=== PATIENT | female | born 1985 | race Two or more races ===

== ENCOUNTER 2019-05-23 20:21 | Emergency (ER) | payer BC, MEDICAID ==
[~2019-05-23] VITALS: Ht 157.5 cm; Wt 75.7 kg
[2019-05-23 20:21] VITALS: BP 107/67
== END 2019-05-23 22:14 | disposition home or self-care (01) ==
LOC: ER 20:21
DX: O98.512 Other viral diseases complicating pregnancy, second trimester (principal); J11.1 Influenza due to unidentified influenza virus with other respiratory manifestations; Z60.2 Problems related to living alone; Z3A.24 24 weeks gestation of pregnancy

== ENCOUNTER 2019-06-02 00:11 | Emergency (ER) | payer BC ==
[~2019-06-02] VITALS: Ht 157.5 cm; Wt 75.7 kg
[2019-06-02 01:06] VITALS: BP 105/72
--- NOTE | 2019-06-02 01:32 | NUR ---
Patient discharged to home in stable condition. Written and verbal after care instructions given. Patient verbalizes understanding of instruction.
== END 2019-06-02 01:32 | disposition home or self-care (01) ==
LOC: ER 00:14
DX: J06.9 Acute upper respiratory infection, unspecified (principal); Z60.2 Problems related to living alone

== ENCOUNTER 2021-06-14 21:55 | Emergency (ER) | payer BC ==
[~2021-06-14] VITALS: Ht 157.5 cm; Wt 77.1 kg
--- NOTE | 2021-06-14 22:55 | NUR ---
PT BIBSELF FROM HOME C/O COUGH X4 DAYS. HAVING COLD LIKE CONGESTION SX: CONGESTION, H/A X2 WEEKS. PT A/OX4. TOLERATING R/A WELL AT 99%. CONNECTED PT TO POX AND MONITOR.
--- NOTE | 2021-06-14 23:23 | NUR ---
COVID ANTIGEN SWAB AND URINE SAMPLE COLLECTED AND SENT TO LAB
--- NOTE | 2021-06-14 23:42 | NUR ---
GENERAL ENGINEER AT PT'S BEDSIDE
[2021-06-15] MEDS ORDERED: AZIT250T13 PO (00:23)
[2021-06-15] MEDS ORDERED: predniSONE 20 MG TABLET PO ONE (00:30)
[2021-06-15] MEDS ORDERED: IPRATROPIUM NEB FS 0.5 MG/2.5 ML AMPUL.NEB NEB ONE (00:30)
[2021-06-15] MEDS ORDERED: AZITHROMYCIN 250 MG TABLET PO ONE (00:30)
[2021-06-15] MEDS ORDERED: ALBUTEROL FS 2.5 MG/3 ML VIAL.NEB NEB ONE (00:30)
[2021-06-15] MEDS ORDERED: predniSONE 20 MG TABLET ONE (00:41)
[2021-06-15] MEDS ORDERED: AZITHROMYCIN 500 MG VIAL ONE (00:41)
[2021-06-15] MEDS ORDERED: AZITHROMYCIN 250 MG TABLET ONE (00:42)
[2021-06-15] MEDS ORDERED: IPRATROPIUM NEB FS 0.5 MG/2.5 ML AMPUL.NEB ONE (00:42)
[2021-06-15] MEDS ORDERED: ALBUTEROL FS 2.5 MG/3 ML VIAL.NEB ONE (00:42)
--- NOTE | 2021-06-15 00:45 | NUR ---
RT AT PT'S BEDSIDE
--- NOTE | 2021-06-15 00:45 | NUR ---
RT AT PT'S BEDSIDE FOR BREATHING TX
--- NOTE | 2021-06-15 01:25 | NUR ---
Patient discharged to home in stable condition. RX Written and verbal after care instructions given. Patient verbalizes understanding of instruction. PT ambulatory with a steady gait
[2021-06-15 04:29] VITALS: BP 123/68
== END 2021-06-15 01:25 | disposition home or self-care (01) ==
LOC: ER 21:55
DX: J18.9 Pneumonia, unspecified organism (principal); Z20.822 Contact with and (suspected) exposure to COVID-19; Z90.49 Acquired absence of other specified parts of digestive tract
CPT/HCPCS: 71045; 84703; 87426; 94640; 99284; C9803; J7512; J0456; J7030

== ENCOUNTER 2022-01-11 18:22 | Emergency (ER) | payer BC ==
[~2022-01-11] VITALS: Ht 157.5 cm; Wt 77.1 kg
[~2022-01-11 18:22] MED LIST: AZIT250T13 PO
[2022-01-11] MEDS ORDERED: IBUP-1955 PO (22:16)
--- NOTE | 2022-01-11 22:16 | NUR ---
Patient discharged to home in stable condition. Written and verbal after care instructions given. Patient verbalizes understanding of instruction.
[2022-01-11 22:17] VITALS: BP 72/18
== END 2022-01-11 22:26 | disposition home or self-care (01) ==
LOC: ER 18:34
DX: S92.531A Displaced fracture of distal phalanx of right lesser toe(s), initial encounter for closed fracture (principal); Z90.49 Acquired absence of other specified parts of digestive tract; Z60.2 Problems related to living alone; Z79.899 Other long term (current) drug therapy; W20.8XXA Other cause of strike by thrown, projected or falling object, initial encounter; Y93.89 Activity, other specified; Y92.89 Other specified places as the place of occurrence of the external cause; Y99.8 Other external cause status
CPT/HCPCS: 73630-TC

== ENCOUNTER 2022-03-10 20:22 | Emergency (ER) | payer BC, OTHER ==
[~2022-03-10] VITALS: Ht 157.5 cm; Wt 81.2 kg
[~2022-03-10 20:22] MED LIST changes: +IBUP-1955 PO
--- NOTE | 2022-03-10 20:36 | NUR ---
CALLED FOR [facility] NO ANSWER
--- NOTE | 2022-03-10 20:41 | NUR ---
CALLED TO [facility] ONCE AGAIN. STILL NO ANSWER. NOT IN WAITING ROOM
[2022-03-10] MEDS ORDERED: MECLIZINE HCL 25 MG TABLET ONE (21:22)
[2022-03-10] MEDS ORDERED: NAPROXEN 250 MG TABLET ONE (21:22)
[2022-03-10] MEDS ORDERED: MECLIZINE HCL 25 MG TABLET PO ONE (21:30)
[2022-03-10] MEDS ORDERED: NAPROXEN 250 MG TABLET PO ONE (21:30)
[2022-03-10] MEDS ORDERED: NAPR-1009 PO (21:33)
[2022-03-10] MEDS ORDERED: MECL-159 PO (21:33)
--- NOTE | 2022-03-10 21:40 | NUR ---
Patient discharged to home in stable condition. Written and verbal after care instructions given. Patient verbalizes understanding of instruction. Pt ambulatory with a steady gait
[2022-03-10 21:42] VITALS: BP 122/87
== END 2022-03-10 21:43 | disposition home or self-care (01) ==
LOC: ER 20:23
DX: H81.11 Benign paroxysmal vertigo, right ear (principal); S16.1XXA Strain of muscle, fascia and tendon at neck level, initial encounter; Z90.49 Acquired absence of other specified parts of digestive tract; Z79.899 Other long term (current) drug therapy; V49.9XXA Car occupant (driver) (passenger) injured in unspecified traffic accident, initial encounter; Y93.89 Activity, other specified; Y92.89 Other specified places as the place of occurrence of the external cause; Y99.8 Other external cause status
CPT/HCPCS: 99283; J8597

== ENCOUNTER 2022-07-23 11:31 | Emergency (ER) | payer MEDICAID ==
[~2022-07-23] VITALS: Ht 157.5 cm; Wt 77.1 kg
[~2022-07-23 11:31] MED LIST changes: +MECL-159 PO; +NAPR-1009 PO
--- NOTE | 2022-07-23 12:00 | NUR ---
RECEIVED PT 36 YRS FEMALE WALKING IN C/O ABDOMINAL PAIN AND DIAHEAHEA FOR 5 DAYS HAD LOSS STOOL MORE THEN 5 TIME TODAY
--- NOTE | 2022-07-23 12:15 | NUR ---
SEEN BY DR. STERLING
--- NOTE | 2022-07-23 12:25 | NUR ---
BLOOD DROW BY LAB TACH
[2022-07-23] MEDS ORDERED: IV NS 0.9% 1,000 ML BAG IV ONE (12:30)
[2022-07-23 12:52] LABS: COLOR,URINE RED (YELLOW)
[2022-07-23 12:53] LABS: BILIRUBIN,URINE MODERATE (NEGATIVE); PROTEIN,URINE >300 mg/dl (NEGATIVE); UGLUCOSE NEGATIVE (NEGATIVE)
[2022-07-23 12:54] LABS: LEUKOCYTE ESTERASE ,URINE TRACE (NEGATIVE); NITRITE, URINE NEGATIVE (NEGATIVE)
--- NOTE | 2022-07-23 12:55 | NUR ---
INERTED ANGOCATHETER G 20 ON LT WRIST IVF INFUSED AND PATENT
[2022-07-23 13:08] LABS: BASOPHILS % (AUTO) 0.6 % (0.0-2.0); EOSINOPHILS % (AUTO) 0.5 % (0.0-6.0); HEMATOCRIT 43 % (33-45); HEMOGLOBIN 14.2 g/dL (11.5-14.8); LYMPHOCYTES # (AUTO) 1.3 K/uL (0.8-4.8); LYMPHOCYTES % (AUTO) 30.5 % (20.0-44.0); MEAN CORPUSCULAR HGB CONC 33 g/dl (31.0-36.0); MEAN CORPUSCULAR VOLUME 85 fL (82-100); MONOCYTES # (AUTO) 0.4 K/uL (0.1-1.30); MONOCYTES % (AUTO) 9.8 % (2.0-12.0); NEUTROPHILS # (AUTO) 2.5 K/uL (1.8-8.9); NEUTROPHILS % (AUTO) 58.6 % (43.0-81.0); PLATELET COUNT (AUTO) 218 K/uL (150-450); RED BLOOD CELL COUNT(AUTO) 4.98 MIL/uL (4.0-5.2); WHITE BLOOD COUNT (AUTO) 4.2 K/uL (4.3-11.0)
[2022-07-23 13:17] LABS: CALCIUM, SERUM 8.8 mg/dL (8.5-10.1); CREATININE 0.8 mg/dL (0.6-1.3); POTASSIUM 3.3 mmol/L (3.5-5.1)
[2022-07-23 13:33] LABS: ALBUMIN 3.8 g/dL (3.4-5.0); BILIRUBIN,DIRECT 0.1 mg/dL (0.0-0.2); BILIRUBIN,TOTAL 0.4 mg/dL (0.2-1.0); TOTAL PROTEIN, SERUM 7.6 g/dL (6.4-8.2)
[2022-07-23] MEDS ORDERED: LOPE-195 PO (13:54)
[2022-07-23] MEDS ORDERED: ONDA4TAB5 PO (13:54)
[2022-07-23] MEDS ORDERED: SULF1TAB48 PO (13:54)
--- NOTE | 2022-07-23 15:45 | NUR ---
TO CT SCAN OF ABDOMIN
[2022-07-23 15:47] LABS: RBC,URINE TOO NUMEROUS TO COUN /HPF (0-2)
[2022-07-23 15:51] LABS: SQUAMOUS EPITHELIAL CELL,UR Few /HPF (None Seen)
[2022-07-23 15:52] LABS: BACTERIA,URINE Moderate /HPF (None Seen)
[2022-07-23 18:26] VITALS: BP 110/70
== END 2022-07-23 18:26 | disposition home or self-care (01) ==
LOC: ER 11:38
DX: K52.9 Noninfective gastroenteritis and colitis, unspecified (principal); Z90.49 Acquired absence of other specified parts of digestive tract; Z79.899 Other long term (current) drug therapy
CPT/HCPCS: 99285; 74176; 96360; 85025; 80048; 83690; 80076; 84703; 81001; 36415; J7030

== ENCOUNTER 2023-07-18 04:45 | Emergency (ER) | payer MEDICAID ==
[~2023-07-18] VITALS: Ht 157.5 cm; Wt 79.4 kg
[~2023-07-18 04:45] MED LIST changes: +LOPE-195 PO; +ONDA4TAB5 PO; +SULF1TAB48 PO
[2023-07-18 05:03] VITALS: BP 124/77; TEMP 98.8
[2023-07-18] MEDS ORDERED: AMOX500C2 PO (05:16)
[2023-07-18 05:18] VITALS: O2SAT 96
[2023-07-18] MEDS: AMOXICILLIN TRIHYDRATE 500 MG CAPSULE PO ONE (05:33)
== END 2023-07-18 05:35 | disposition home or self-care (01) ==
LOC: ER 04:49
DX: J03.90 Acute tonsillitis, unspecified (principal); Z90.49 Acquired absence of other specified parts of digestive tract; Z60.2 Problems related to living alone; Z79.899 Other long term (current) drug therapy
CPT/HCPCS: 86403-TC; 87070-TC